=== PATIENT | male | born 1960 | race Caucasian/White ===

== ENCOUNTER 2019-11-08 07:37 | Day surgery (SDC) | payer OTHER ==
[2019-11-08] MEDS ORDERED: PROPOFOL INJ 200 MG/20 ML VIAL IV ONE (07:44)
[2019-11-08 09:42] VITALS: BP 124/59
--- NOTE | 2019-11-08 12:53 | Operative Report ---
Operative Report DATE OF SURGERY: 11/08/19 Operative Report: The risk, benefits and alternatives of the procedure including the risk of bleeding, perforation requiring surgery have been explained to the patient in detail and informed consent has been obtained. Patient is taken back to the endoscopy suite and placed in a left, lateral decubital position. Timeout was called. Propofol medication is administered. Rectal examination is done which did not reveal any masses, tears or fissures. An Olympus videoscope was introduced into the patient's rectum. Scope was then carefully advanced all the way to the cecum. The cecum was identified by the usual anatomical landmarks including the ileocecal valve the appendiceal office. Photodocumentation is obtained. The scope was then sequentially pulled back via the various segments of the colon including the ascending colon, hepatic flexure, transverse colon, splenic flexure, descending colon and finding to the rectosigmoid portions of the colon. Retroflexion maneuvers performed. PREOPERATIVE DIAGNOSIS: Colorectal cancer screening POSTOPERATIVE DIAGNOSIS: Diverticulosis without any evidence of diverticulitis. Internal hemorrhoids. Nonspecific inflammation right side of the colon status post biopsy OPERATION: Colonoscopy with biopsy SURGEON: DOROTHY PERALTA ANESTHESIA: LMAC TISSUE REMOVED OR ALTERED: As noted above COMPLICATIONS: None. ESTIMATED BLOOD LOSS: None. INTRAOPERATIVE FINDINGS: As noted above. PROCEDURE: Patient tolerated the procedure well. No immediate postprocedure complications are noted. Patient is discharged in good condition. Discharge date 11/08/2019. Discharge diet: Regular. Discharge activity: Regular. 2 to 3-week follow-up to discuss findings. Patient is instructed call the office or proceed to the emergency room should there be any further problems or questions. If biopsies are negative consider 10-year surveillance colonoscopy.
== END 2019-11-08 09:42 | disposition home or self-care (01) ==
LOC: END 07:37
PROVIDERS: ATTEND Internal Medicine Gastroenterology
DX: Z12.11 Encounter for screening for malignant neoplasm of colon (principal); K57.30 Diverticulosis of large intestine without perforation or abscess without bleeding; K64.8 Other hemorrhoids; K52.9 Noninfective gastroenteritis and colitis, unspecified; J45.909 Unspecified asthma, uncomplicated; E66.01 Morbid (severe) obesity due to excess calories
CPT/HCPCS: 45380; 88305 ×2; 00812; J2704; 812

== ENCOUNTER → 2019-11-30 | Outpatient (CLI) | payer OTHER ==
--- NOTE | 2019-12-01 08:55 | XCELERA REPORT ---
[address] [facility] [address] Lower Extremity Venous Evaluation Procedure: Color flow and duplex imaging bilaterally of the veins of the lower extremities as well as the Common Femoral veins. Right Sided Venous Evaluation Normal vessel filling wall to wall, compression and augmentation as well as Colour flow down to the infrageniculate veins. Left Sided Venous Evaluation Normal vessel filling wall to wall, compression and augmentation as well as Colour flow down to the infrageniculate veins. Interpretation Summary No duplex evidence of DVT or obstruction in the bilateral lower extremities. Name: ADI RODRIGUEZJR Age: 59 yrs Gender: Male : 1960 Patient Status: Outpatient Patient Location: Study Date: 11/30/2019 10:52 AM Reason For Study: SWELLING OF BILATERAL LOWER Ordering Physician: NITISH BELLAMY Performed By: Jose Powers : NITISH BELLAMY > Amor Gonzalez
--- NOTE | 2019-12-01 12:50 | XCELERA REPORT ---
[address] [address] Lower Extremity Arterial Evaluation Name: ADI RODRIGUEZ JR Age: 59 yrs Gender: Male : 1960 Patient Status: Outpatient Patient Location: Study Date: 11/30/2019 10:30 AM Procedure: Ankle brachial indicies performed. 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 . Multiphasic waveform. Left Side Arterial Evaluation IBIS in Posterior Tibial: 0.86. Multiphasic waveform. Interpretation Summary Abnormal IBIS's. On the right suggesting moderate obstructive arterial disease. On the left suggesting mild obstructive arterial disease. Within the limitations of this technique. : NITISH BELLAMY > Amor Gonzalez
== END ==
LOC: SP 09:34
PROVIDERS: ATTEND Nurse Practitioner Family
DX: M79.89 Other specified soft tissue disorders (principal)
CPT/HCPCS: 93925; 93970